=== PATIENT | female | born 1985 | race Two or more races ===

== ENCOUNTER 2019-05-17 14:57 | Emergency (ER) | payer OTHER ==
[2019-05-17 15:20] VITALS: BP 111/68; PULSE 79; TEMP 98.6; BMI 29.2
[2019-05-17] MEDS ORDERED: CYCLOBENZAPRINE HCL 10 MG TABLET (FP) PO ONE (17:05)
[2019-05-17] MEDS ORDERED: KETOROLAC TROMETHAMINE 60 MG/2 ML VIAL IM ONE (17:05)
[2019-05-17] MEDS ORDERED: LIDOCAINE 5% TOPICAL PATCH TP ONE (17:05)
--- NOTE | 2019-05-17 17:18 | PDOC ---
History of Present Illness - General Chief Complaint: Lightheaded Stated Complaint: DIZZY Time Seen by Provider: 05/17/19 16:25 History Source: Patient Exam Limitations: No Limitations Past History - Travel Traveled outside of the country in the last 30 days: No Close contact w/someone who was outside of country & ill: No - Past Medical History Allergies/Adverse Reactions: Allergies Allergy/AdvReac Type Severity Reaction Status Date / Time No Known Allergies Allergy Verified 05/17/19 15:14 Home Medications: Ambulatory Orders Cyclobenzaprine HCl [Flexeril -] 10 mg PO HS #10 tablet 05/17/19 Ibuprofen 600 mg PO Q6H #30 tablet 05/17/19 COPD: No - Psycho Social/Smoking Cessation Hx Smoking History: Never smoked Review of Systems - Review of Systems Able to Perform ROS?: Yes Comments:: 05/17/19 17:10 CONSTITUTIONAL: Absent: fever, chills, diaphoresis, generalized weakness, malaise, loss of appetite CARDIOVASCULAR: Absent: chest pain, loss of consciousness, palpitations, irregular heart rate, peripheral edema MUSCULOSKELETAL: Present: Left arm pain, chest wall pain Absent: myalgia, arthralgia, joint swelling SKIN: Absent: rash, itching, pallor NEUROLOGIC: Absent: headache, focal weakness or paresthesias, dizziness, unsteady gait, seizure, mental status changes, bladder or bowel incontinence PSYCHIATRIC: Absent: anxiety, depression, suicidal or homicidal ideation, hallucinations. Is the patient limited Kazakh proficient: No *Physical Exam - Vital Signs Last Vital Signs Temp Pulse Resp BP Pulse Ox 98.6 F 79 18 111/68 99 05/17/19 15:14 05/17/19 15:14 05/17/19 15:14 05/17/19 15:14 05/17/19 15:14 - Physical Exam 05/17/19 17:18 GENERAL: Well developed, well nourished. Awake and alert. No acute distress. NECK: Supple. Full ROM. No midline tenderness. Tenderness palpation of the paraspinous muscles of the cervical spine with palpable spasm. No lymphadenopathy. CARDIOVASCULAR: Regular rate and rhythm. No murmurs, rubs, or gallops. Distal pulses are 2+ and symmetric. PULMONARY: No evidence of respiratory distress. Lungs clear to auscultation bilaterally. No wheezing, rales or rhonchi. MUSCULOSKELETAL TTP of the L chest wall. L arm pain with internal and external rotation of the L shoulder. PMS intact. Normal range of motion at all joints. No bony deformities or tenderness. No CVA tenderness. EXTREMITIES: No cyanosis. No clubbing. No edema. No calf tenderness. SKIN: Warm and dry. Normal capillary refill. No rashes. No jaundice. NEUROLOGICAL: Alert, awake, appropriate. Cranial nerves 2-12 intact. No deficits to light touch and temperature in face, upper extremities and lower extremities. No motor deficits in the in face, upper extremities and lower extremities. Normoreflexic in the upper and lower extremities. Normal speech. Toes are down- going bilaterally. Gait is normal without ataxia. PSYCHIATRIC: Cooperative. Good eye contact. Appropriate mood and affect. Medical Decision Making - Medical Decision Making 05/17/19 17:21 The patient is a 33-year-old female with no past medical history presents the ER today with left arm pain. She states that she has had her pain for approximately 3 days. She notes that it is running down her left arm and it feels numb and tingly. She also states she has pain along the chest wall and it hurts more when she touches it or takes a deep breath. 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 She took aspirin at home with some relief of her symptoms. Denies difficulty breathing, shortness of breath, palpitations, lightheadedness, dizziness and loss of consciousness. A/P: Cervical radiculopathy On exam patient with palpable muscle spasm to the left neck. EKG rate 60 bpm, normal sinus rhythm. Normal intervals and axis. No acute ST- T wave changes. Given normal EKG and the pain is worse with movement, likely cervical radiculopathy. Treated with Toradol, Flexeril and Lidoderm patch in the ER. Will refer to orthopedics and discharge home with symptomatic relief Return precautions given. I discussed the physical exam findings, ancillary test results and final diagnoses with the patient. I answered all of the patient's questions. The patient was satisfied with the care received and felt comfortable with the discharge plan and treatment plan. The Patient agrees to follow up with the primary care physician/specialist within 24-72 hours. Return precautions were given. Discharge - Discharge Information Problems reviewed: Yes Clinical Impression/Diagnosis: Cervical radicular pain Condition: Stable Disposition: HOME - Admission No - Follow up/Referral Referrals: Hunter Calvo MD [Staff Physician] - - Patient Discharge Instructions Patient Printed Discharge Instructions: DI for Cervical Radiculopathy Additional Instructions: You were evaluated for your neck pain, arm pain and chest wall pain today. It is most likely due to a pinched nerve in your neck. Your EKG was normal. Please take the Flexeril at night before bed starting tomorrow. This is a muscle relaxer. Do not drink or drive after taking this medication as it may make you drowsy. Starting tomorrow please take Motrin 600 mg every 6 hours for pain. Please follow-up with orthopedics for further management of your symptoms within 1 week if your symptoms are not improving. Return to the ER for shortness of breath, palpitations, worsening pain or if you have any changes in your symptoms. - Post Discharge Activity Work/Back to School Note: Back to Work
[2019-05-17] MEDS ORDERED: LIDOCAINE 5% TOPICAL PATCH ONE (17:20)
[2019-05-17] MEDS ORDERED: KETOROLAC TROMETHAMINE 30 MG/1 ML VIAL ONE (17:20)
[2019-05-17] MEDS ORDERED: CYCLOBENZAPRINE HCL 10 MG TABLET (FP) ONE (17:20)
[2019-05-17] MEDS ORDERED: LIDOCAINE PATCH REMOVAL MC SCH (22:00)
--- NOTE | 2019-05-18 13:59 | EKG ---
Test Reason : Blood Pressure : / mmHG Vent. Rate : 068 BPM Atrial Rate : 068 BPM P-R Int : 148 ms QRS Dur : 092 ms QT Int : 404 ms P-R-T Axes : 030 008 007 degrees QTc Int : 429 ms NORMAL SINUS RHYTHM NORMAL ECG NO PREVIOUS ECGS AVAILABLE Confirmed by Hollie Lawrence ([id number]) on 05/18/2019 1:59:44 PM Referred By: Confirmed By:Hollie Lawrence
== END 2019-05-17 17:31 | disposition home or self-care (01) ==
LOC: JERFT 14:57
PROC: 3E0233Z Introduction of Anti-inflammatory into Muscle, Percutaneous Approach (ICD-10-PCS; principal; 2019-05-17)
DX: M54.12 Radiculopathy, cervical region (principal)
CPT/HCPCS: 93005; 93010; 99282-25

== ENCOUNTER 2021-09-24 22:01 | Emergency (ER) | payer SELFPAY ==
[2021-09-24 22:11] VITALS: BP 137/71; PULSE 79; TEMP 97.7; BMI 72.3
== END 2021-09-24 23:34 | disposition left against medical advice (07) ==
LOC: JER 22:01
DX: R51.9 Headache, unspecified (principal)
CPT/HCPCS: 93005; 93010